=== PATIENT | male | born 1985 | race Two or more races ===

== ENCOUNTER 2021-09-12 08:04 | Outpatient (CLI) | payer OTHER ==
[~2021-09-12 08:04] MED LIST: ADVAIR 2501 DISK W/1 IH; ALLEGRA30 MG PO; SINGULAIR4 MG PO; WELLBUTRIN75 MG PO
== END 2021-09-12 08:12 | disposition home or self-care (01) ==
LOC: EDBD 08:04 → LAB 08:04
PROVIDERS: ATTEND Internal Medicine
DX: Z20.822 Contact with and (suspected) exposure to COVID-19 (principal)

== ENCOUNTER 2021-09-19 13:06 | Outpatient (CLI) | payer OTHER | END 2021-09-19 13:13 | disposition home or self-care (01) | LOC: LAB 13:06 | DX: Z20.822 Contact with and (suspected) exposure to COVID-19 (principal) ==

== ENCOUNTER 2025-05-16 11:54 | Emergency (ER) | payer OTHER ==
[~2025-05-16] VITALS: Ht 185.4 cm; Wt 98.4 kg
[2025-05-16 15:46] LABS: ALT/SGPT 43.0 U/L (12-78); AST/SGOT 21.0 U/L (15-37); BILIRUBIN TOTAL 0.64 mg/dL (0.3-1.2); BUN CREA RATIO 18.0 (7.0-25.0); CREATININE SERUM 0.88 mg/dL (0.70-1.30); GFR 96.92; GLOBULINA 3.9 G/DL (2.4-3.5); GLUCOSE FASTING 125.0 mg/dL (65-100); OSMOLALITY SERUM 282.0 MOSM/KG (275-295)
[2025-05-16] MEDS ORDERED: DEXAMETHASONE SODIUM PHOSPHATE 4 MG/ML VIAL IM STA (18:33)
[2025-05-16] MEDS ORDERED: ORPHENADRINE CITRATE 30 MG/ML AMPUL IM STA (18:34)
[2025-05-16] MEDS ORDERED: ACETAMINOPHEN 500 MG GEL..CAP PO STA (18:34)
== END 2025-05-16 18:54 | disposition home or self-care (01) ==
LOC: ER 11:54
PROVIDERS: Preventive Medicine Public Health & General Preventive Medicine
DX: M54.2 Cervicalgia (principal); R07.89 Other chest pain; V49.9XXA Car occupant (driver) (passenger) injured in unspecified traffic accident, initial encounter; Y93.89 Activity, other specified; Y92.413 State road as the place of occurrence of the external cause; M25.512 Pain in left shoulder; J45.909 Unspecified asthma, uncomplicated; F41.8 Other specified anxiety disorders; Z88.6 Allergy status to analgesic agent
CPT/HCPCS: 36415; 70450; 71110; 72125; 73030; 74177; Q9965